=== PATIENT | male | born 1975 | race Caucasian/White ===

== ENCOUNTER 2020-01-28 20:19 | Emergency (ER) | payer OTHER, SELFPAY ==
[2020-01-28 20:34] VITALS: BP 160/86; PULSE 116; RESP 22; TEMP 38.8; O2SAT 97; BMI 44.3
[2020-01-28 20:37] VITALS: BMI 44.3
--- NOTE | 2020-01-28 20:39 | ED.GENADULT ---
HPI - General Adult General Chief complaint: Fever Stated complaint: Fever and body aches Time Seen by Provider: 01/28/20 20:22 Source: patient Mode of arrival: Ambulatory Limitations: no limitations History of Present Illness HPI narrative: 44-year-old male here for evaluation of approximately 24 hours of fevers, chills, body aches. Has taken Tylenol/ibuprofen for symptoms prior to arrival. No sick contacts. No sore throat. Does have a slight headache. No neck pain. No shortness breath. No cough. No abdominal pain. No change in bowel habits. No rashes. No recent travel. Came in for evaluation of potential COVID-19. Related Data Allergies Allergy/AdvReac Type Severity Reaction Status Date / Time naproxen Allergy Verified 01/28/20 20:34 Review of Systems Constitutional Constitutional: Reports body ache(s), Reports chills, Reports fatigue, Reports fever(s), Reports headache(s) and Reports lethargy Eyes Eyes: Denies change in vision ENT Ears, Nose, Mouth, and Throat: Reports headache(s), Denies sinus pain and Denies sore throat Cardiovascular Cardiovascular: Denies chest pain and Denies dyspnea Respiratory Respiratory: Denies dyspnea Gastrointestinal Gastrointestinal: Denies abdominal pain and Denies change in bowel habits Genitourinary Genitourinary: Denies dysuria Genitourinary: Denies dysuria Musculoskeletal Musculoskeletal: Denies arthralgias, Denies back pain, Reports myalgias and Reports myalgias Integumentary/Breasts Skin/Breast: Denies rash Neurologic Neurologic: Denies behavioral changes and Reports headache(s) Psychiatric Psychiatric: Denies behavioral changes Endocrine Endocrine: Reports fatigue Hematologic/Lymphatic Hematologic/Lymphatic: Denies easy bleeding and Denies easy bruising Allergic/Immunologic Allergic/Immunologic: Denies urticaria Patient History Medical History Healthy adult (Acute) Social History Smoking Status: Unknown if ever smoked Smoking Status: Unknown if ever smoked tobacco type: smokeless tobacco alcohol intake frequency: holidays/special occasions only Substance Use Type: marijuana Exam Initial Vital Signs Initial Vital Signs: Vital Signs Temperature 101.9 F H 01/28/20 20:34 Pulse Rate 116 H 01/28/20 20:34 Respiratory Rate 22 07/10/20 20:34 Blood Pressure 160/86 H 01/28/20 20:34 Pulse Oximetry 97 01/28/20 20:34 Const General: cooperative and comfortable Limitations: mental status not altered HENMT Head: normal to inspection and normocephalic Ears: TM's normal bilaterally Mouth: oral mucosae normal Teeth and gingiva: dentition normal Throat: posterior oropharynx normal Resp Effort & Inspection: normal respiratory effort Auscultation: clear to auscultation bilaterally Cardio Rate: regular rate Rhythm: regular rhythm GI Inspection: non-distended Palpation: soft Back/Spine/Pelvis Back: No CVA tenderness Skin Lesions: no lesions Rashes: no rashes Neuro General: patient alert, patient awake and patient oriented x3 Cognition: normal cognition Speech: speech normal Extrem General: normal to inspection and capillary refill normal Psych Appearance: grossly normal and well kempt Course Orders Ordered: ED Orders 01/28/20 20:50 XR chest 1V Stat 01/28/20 21:30 Lactate (Lactic Acid) Stat 01/28/20 21:50 Basic Metabolic Panel Stat Complete Blood Count AUTO DIFF Stat Procalcitonin Stat Discontinued Medications Acetaminophen (Tylenol) 975 mg PO NOW ONE Stop: 01/28/20 20:50 Last Admin: 01/28/20 21:02 Dose: 975 mg Documented by: ALESSIO Vital Signs Vital signs: Vital Signs - 8 hr 01/28/20 20:34 01/28/20 21:02 01/28/20 22:39 Temperature 101.9 F H 101.9 F H Pulse Rate 116 H 89 Respiratory Rate 22 Blood Pressure 160/86 H 151/65 H Pulse Oximetry 97 96 01/28/20 22:57 Temperature 100.2 F H Pulse Rate 89 Respiratory Rate 24 Blood Pressure 151/65 H Pulse Oximetry 96 Medical Decision Making Lab Data Lab results reviewed: Yes I reviewed the patient's lab results. Result diagrams: 01/28/20 21:50 01/28/20 21:50 Labs: Lab Results 01/28/20 01/28/20 01/28/20 Range/Units 21:30 21:50 21:50 WBC 4.3 L (4.5-11.0) X10^3/uL RBC 4.97 (4.5-5.9) X10^6/uL Hgb 15.0 (13.5-17.5) g/dL Hct 43.9 (41-53) % MCV 88.4 (80-100) fL MCH 30.1 (26-34) PG MCHC 34.1 (30-36) % RDW 12.8 (11.6-14.8) % Plt Count 184 (150-400) X10^3/uL Neut % (Auto) 80.2 H (50-75) % Lymph % (Auto) 9.6 L (25-40) % [place] % (Auto) 8.3 (3-14) % Eos % (Auto) 0.1 L (2-4) % Baso % (Auto) 1.8 (0-2) % Neut # (Auto) 3500 (1530-6999) /uL Lymph # (Auto) 400 L (4015-6896) /uL [place] # (Auto) 400 (0-900) /uL Eos # (Auto) 0 (0-450) /uL Baso # (Auto) 100 (0-100) /uL Sodium (137-145) mmol/L Potassium (3.4-5.1) mmol/L Chloride (98-107) mmol/L Carbon Dioxide (22-32) mmol/L BUN (9-20) mg/dL Creatinine (0.66-1.25) mg/dL Estimated GFR (>60) mL/min BUN/Creatinine Ratio (6-22) Glucose (70-100) mg/dL Lactate 2.0 (0.7-2.1) mmol/L Calcium (8.4-10.2) mg/dL Procalcitonin 0.40 (<0.5) ng/mL 01/28/20 Range/Units 21:50 WBC (4.5-11.0) X10^3/uL RBC (4.5-5.9) X10^6/uL Hgb (13.5-17.5) g/dL Hct (41-53) % MCV (80-100) fL MCH (26-34) PG MCHC (30-36) % RDW (11.6-14.8) % Plt Count (150-400) X10^3/uL Neut % (Auto) (50-75) % Lymph % (Auto) (25-40) % [place] % (Auto) (3-14) % Eos % (Auto) (2-4) % Baso % (Auto) (0-2) % Neut # (Auto) (6814-5083) /uL Lymph # (Auto) (4393-7712) /uL [place] # (Auto) (0-900) /uL Eos # (Auto) (0-450) /uL Baso # (Auto) (0-100) /uL Sodium 135 L (137-145) mmol/L Potassium 3.6 (3.4-5.1) mmol/L Chloride 101 (98-107) mmol/L Carbon Dioxide 25 (22-32) mmol/L BUN 15 (9-20) mg/dL Creatinine 0.81 (0.66-1.25) mg/dL Estimated GFR > 60.0 (>60) mL/min BUN/Creatinine Ratio 18.5 (6-22) Glucose 217 H (70-100) mg/dL Lactate (0.7-2.1) mmol/L Calcium 8.8 (8.4-10.2) mg/dL Procalcitonin (<0.5) ng/mL Imaging Data Chest x-ray: Radiologist's Impression: [place] [address] XRay Report Signed Patient: Jame Sykes WMR#: [id number] : 1975Acct:[id number] Age/Sex: 44 / MDate of Service: 01/28/20 Loc: ED Accession Number: [id number] Procedure: XR chest 1V Ordering Provider: Solo Perkins D.O. PROCEDURE: XR CHEST 1V INDICATIONS: eval for PNA TECHNIQUE: One view of the chest was acquired. COMPARISON: None. FINDINGS: Surgical changes and devices: None. Lungs and pleura: Lungs are clear. No pleural effusions or pneumothorax. Mediastinum: Mediastinal contours appear normal. Heart size is normal. Bones and chest wall: No suspicious bony lesions. Overlying soft tissues appear unremarkable. IMPRESSION: No acute cardiopulmonary findings. Dictated by: Leticia Vásquez M.D. on 01/28/2020 at 21:23 Approved by: Leticia Vásquez M.D. on 01/28/2020 at 21:23 [facility] Narrative Medical decision making narrative: Chest x-ray is unremarkable. Abdomen is soft and nondistended. Low suspicion for intra-abdominal source of his infection. Has no skin changes concerning for cellulitis. No cough. No sore throat. Exam is not consistent with meningitis. Have no direct source of his fever however COVID-19 is a concern. He was tested for this. We will contact him for any positive or negative results. Patient is not describing any urinary symptoms. We did discuss the use of Tylenol and/or ibuprofen for his symptoms. He was given return precautions and follow-up instructions. He expressed understanding and agreement. Discharge Plan Departure Patient Disposition: Home Clinical Impression: Fever Qualifiers: Fever type: unspecified Qualified Code(s): R50.9 - Fever, unspecified Discharge Date/Time: 01/28/20 22:58 Instructions: DI for Fever (Symptom) -- Adult Activity Restrictions/Additional Instructions: You can do Tylenol and/or ibuprofen like we discussed. You were tested for COVID-19. This test takes anywhere from 2-5 days to result. We will contact you for positive or negative results. Until then recommend that you self isolate. Be sure your covering your cough. Washing her hands frequently. Contact your primary provider for follow-up. Return to the emergency department for any new or worsening symptoms Stand Alone Forms: Work Release Note
--- NOTE | 2020-01-28 20:50 | DI.RAD.S_ITS ---
PROCEDURE: XR CHEST 1V INDICATIONS: eval for PNA TECHNIQUE: One view of the chest was acquired. COMPARISON: None. FINDINGS: Surgical changes and devices: None. Lungs and pleura: Lungs are clear. No pleural effusions or pneumothorax. Mediastinum: Mediastinal contours appear normal. Heart size is normal. Bones and chest wall: No suspicious bony lesions. Overlying soft tissues appear unremarkable. IMPRESSION: No acute cardiopulmonary findings. Dictated by: Leticia Vásquez M.D. on 01/28/2020 at 21:23 Approved by: Leticia Vásquez M.D. on 01/28/2020 at 21:23
[2020-01-28 21:02] VITALS: TEMP 38.8
[2020-01-28] MEDS: ACETAMINOPHEN 325 MG TABLET 975 MG PO (21:02)
--- NOTE | 2020-01-28 21:39 | PC.NURSE ---
Unsuccessful IV attempts. Lab to come draw for blood.
[2020-01-28 22:00] LABS: Add Manual Diff / Slide Review NO; Basophils Absolute Auto 100 /uL (0-100); Basophils Percent Auto 1.8 % (0-2); Eosinophils Absolute Auto 0 /uL (0-450); Eosinophils Percent Auto 0.1 % (2-4); Hematocrit 43.9 % (41-53); Lymphocytes Absolute Auto 400 /uL (1100-4500); Lymphocytes Percent Auto 9.6 % (25-40); Mean Corpuscular HGB Conc 34.1 % (30-36); Mean Corpuscular Hemoglobin 30.1 PG (26-34); Mean Corpuscular Volume 88.4 fL (80-100); Monocytes Absolute Auto 400 /uL (0-900); Monocytes Percent Auto 8.3 % (3-14); Neutrophils Absolute Auto 3500 /uL (1500-7000); Neutrophils Percent Auto 80.2 % (50-75); Platelet Count 184 X10^3/uL (150-400); Red Blood Cell Count 4.97 X10^6/uL (4.5-5.9); Red Cell Distribution Width 12.8 % (11.6-14.8); White Blood Cell Count 4.3 X10^3/uL (4.5-11.0)
[2020-01-28 22:14] LABS: BUN Creatinine Ratio 18.5 (6-22); Blood Urea Nitrogen 15 mg/dL (9-20); Calcium 8.8 mg/dL (8.4-10.2); Carbon Dioxide 25 mmol/L (22-32); Chloride 101 mmol/L (98-107); Estimated Glomerular Filt Rate > 60.0 mL/min (>60); Glucose 217 mg/dL (70-100); HEMOLYSIS < 15 (0-50); Potassium 3.6 mmol/L (3.4-5.1); Sodium 135 mmol/L (137-145)
[2020-01-28 22:39] VITALS: BP 151/65; PULSE 89; O2SAT 96
[2020-01-28 22:57] VITALS: BP 151/65; PULSE 89; RESP 24; TEMP 37.9; O2SAT 96
[2020-02-01 03:29] LABS: COVID19 Sendout Not Detected (Not Detected)
== END 2020-01-28 22:58 | disposition home or self-care (01) ==
PROVIDERS: Emergency Provider Emergency Medicine
DX: R50.9 Fever, unspecified (principal); Z03.818 Encounter for observation for suspected exposure to other biological agents ruled out; R51 Headache
CPT/HCPCS: 36415; 71045; 80048; 83605; 84145; 85025; 87635; 99283; 99284

== ENCOUNTER → 2020-11-10 12:20 | Outpatient (CLI) | payer OTHER, SELFPAY ==
[2020-11-10] MEDS: COVID-19 VACC #1, MRNA(MOD) 100 MCG/0.5 ML VIAL IM (12:29)
--- NOTE | 2020-11-10 14:35 | PC.NURSE ---
patient received 1st dose of covid vaccine (Moderna Lot#[id number] Exp 04/25/21) at 12:29 pm without incident. Patient walked to observation chair. approximately 14 minute michael, patient stated to Observation nurse (Jeri Mcpherson RN) that he didn't feel well. Patient then pitched forward out of the chair and landed on his face and was unresponsive, possible seizure-like activity. Multiple abrasions and lacerations on face (wearing glasses when he fell). Immediate care given, neck supported. Patient regained responsiveness, alert and oriented after possible brief post-ictal period. girlfriend at side. Rapid response called overhead by registration. Janis called ED to request they bring down backboard and c-collar. Rapid response team arrived. At 12:54- BP 160/[address] Matias with patient. C-collar placed. Patient responsive. Upon MD direction attempted to sit patient up with cervical precautions to get him in a wheelchair to take him to ED. When patient sat up became pale, diaphoretic, and nauseous and laid back down. Patient then again developed seizure like activity with rigidness in extremities, diaphoresis. Patient rolled to side. C-collar removed and head supported. 12:58 - BP 141/61, HR 99. Decision made by response team to call 911 for lift assistance due the the patient's size. 13:07 - BP140/65 HR 98. EMS on scene and evaluated patient. Patient responsive and asked to get up himself. pt up to waiting WC. Patient taken to ED at 13:15.
== END ==
PROVIDERS: Visit Provider Internal Medicine
DX: Z23 Encounter for immunization (principal)
CPT/HCPCS: 0011A; 91301

== ENCOUNTER 2020-11-10 13:15 | Emergency (ER) | payer OTHER, SELFPAY ==
[2020-11-10] VITALS (17 sets, daily range): BP systolic 108–130; BP diastolic 56–75; PULSE 73–87; RESP 18–24; TEMP 36.8; O2SAT 92–99
--- NOTE | 2020-11-10 13:24 | DI.CT.S_ITS ---
PROCEDURE: CT HEAD/BRAIN WO CON INDICATIONS: syncope, s/p vaccine, facial laceration TECHNIQUE: Noncontrast 4.5 mm thick angled axial sections acquired from the foramen magnum to the vertex, with coronal and sagittal reformats. For radiation dose reduction, the following was used: automated exposure control, adjustment of mA and/or kV according to patient size. COMPARISON: [facility], CT, CT CERVICAL SPINE WO CON, 11/10/2020, 13:40. [facility], CT, CT FACIAL BONES WO CON, 11/10/2020, 13:40. [facility], CR, XR CHEST 1V, 11/10/2020, 13:28. FINDINGS: Image quality: Excellent. CSF spaces: Basal cisterns are patent. No extra-axial fluid collections. Ventricles are normal in size and shape. Brain: No midline shift. No intracranial masses or hemorrhage. Moran-white matter interface is normal. Skull and face: Calvarium and visualized facial bones are intact, without suspicious lesions. Sinuses: Visualized sinuses and mastoids are clear. IMPRESSION: No acute intracranial process is seen. No acute intracranial hemorrhage is seen. No displaced facial bone fracture can be seen. Dictated by: Maurice Valentin M.D. on 11/10/2020 at 13:04 Approved by: Maurice Valentin M.D. on 11/10/2020 at 13:04
--- NOTE | 2020-11-10 13:24 | DI.RAD.S_ITS ---
PROCEDURE: XR CHEST 1V INDICATIONS: syncope, s/p vaccine, facial laceration TECHNIQUE: One view of the chest was acquired. COMPARISON: [facility], CR, XR CHEST 1V, 01/28/2020, 20:52. FINDINGS: Surgical changes and devices: None. Lungs and pleura: Lungs are clear. No pleural effusions or pneumothorax. Mediastinum: Mediastinal contours appear normal. Heart size is normal. Bones and chest wall: No suspicious bony lesions. Overlying soft tissues appear unremarkable. IMPRESSION: No acute cardiopulmonary disease process. Dictated by: Bijal Lara MD, PhD on 11/10/2020 at 13:42 Approved by: Bijal Lara MD, PhD on 11/10/2020 at 13:43
--- NOTE | 2020-11-10 13:24 | DI.CT.S_ITS ---
PROCEDURE: CT FACIAL BONES WO CON INDICATIONS: syncope, s/p vaccine, facial laceration TECHNIQUE: Noncontrast 2.5 mm thick axial images acquired from the mandible through the frontal sinuses, with coronal and sagittal reformatting. For radiation dose reduction, the following was used: automated exposure control, adjustment of mA and/or kV according to patient size. COMPARISON: [facility], CR, XR CHEST 1V, 11/10/2020, 13:28. [facility], CT, CT HEAD/BRAIN WO CON, 11/10/2020, 13:40. [facility], CT, CT CERVICAL SPINE WO CON, 11/10/2020, 13:40. FINDINGS: Image quality: Excellent. Bones and teeth: Orbital ramon are intact. Sinus ramon show no fracture or deformity. Nasal bones and septum are intact. Visualized portions of the mandible demonstrate no fractures or subluxation. Zygomatic arches are intact. Pterygoid plates are intact. Visualized portions of the skull base and auditory canals are intact. Sinuses: Moderate mucosal thickening is seen within the ethmoid air cells. Mild mucosal thickening is seen within the right sphenoid sinus. There is a mucous retention cyst within the left sphenoid sinus. Mastoid air cells are aerated. Soft tissues: Left-sided facial laceration is partially seen. Borderline prominent lymph nodes are seen involving both sides of the neck. No radiopaque foreign bodies are seen. Vascular: Visualized vascular structures appear normal in the absence of contrast. Bony vascular foramina and canals are intact. IMPRESSION: Left-sided facial laceration partially seen, without an underlying displaced fracture identified. Paranasal sinus disease is incidentally noted, which is worst within the ethmoid air cells. Dictated by: Maurice Valentin M.D. on 11/10/2020 at 13:01 Approved by: Maurice Valentin M.D. on 11/10/2020 at 13:03
--- NOTE | 2020-11-10 13:24 | DI.CT.S_ITS ---
PROCEDURE: CT CERVICAL SPINE WO CON INDICATIONS: syncope, s/p vaccine, facial laceration TECHNIQUE: Noncontrast 3 mm thick sections acquired from the skull base to the T4 level. Sagittal and coronal reformats were then constructed. For radiation dose reduction, the following was used: automated exposure control, adjustment of mA and/or kV according to patient size. COMPARISON: [facility], CT, CT HEAD/BRAIN WO CON, 11/10/2020, 13:40. [facility], CT, CT FACIAL BONES WO CON, 11/10/2020, 13:40. [facility], CR, XR CHEST 1V, 11/10/2020, 13:28. FINDINGS: Image quality: This examination is somewhat limited by quantum mottle artifact. Bones: No fractures or dislocations. Visualized superior ribs are intact. Soft tissues: Prevertebral soft tissues are normal in thickness. No paravertebral hematomas. No apical pneumothoraces. IMPRESSION: Negative for acute fracture. Dictated by: Maurice Valentin M.D. on 11/10/2020 at 13:05 Approved by: Maurice Valentin M.D. on 11/10/2020 at 13:08
[2020-11-10 13:31] LABS: Add Manual Diff / Slide Review NO; Basophils Absolute Auto 100 /uL (0-100); Basophils Percent Auto 1.4 % (0-2); Eosinophils Absolute Auto 300 /uL (0-450); Eosinophils Percent Auto 3.4 % (2-4); Hematocrit 43.7 % (41-53); Hemoglobin 14.9 g/dL (13.5-17.5); Lymphocytes Absolute Auto 2600 /uL (1100-4500); Lymphocytes Percent Auto 29.4 % (25-40); Mean Corpuscular HGB Conc 34.2 % (30-36); Mean Corpuscular Hemoglobin 30.5 PG (26-34); Mean Corpuscular Volume 89.2 fL (80-100); Monocytes Absolute Auto 800 /uL (0-900); Monocytes Percent Auto 8.7 % (3-14); Neutrophils Absolute Auto 5100 /uL (1500-7000); Neutrophils Percent Auto 57.1 % (50-75); Platelet Count 268 X10^3/uL (150-400); Red Blood Cell Count 4.89 X10^6/uL (4.5-5.9); Red Cell Distribution Width 12.5 % (11.6-14.8)
[2020-11-10 13:32] LABS: INR 1.1 (0.9-1.3); Prothrombin Time 12.1 SECONDS (10.1-12.7)
[2020-11-10 13:38] LABS: Alanine Aminotransferase 28 IU/L (<50); Albumin 4.4 g/dL (3.5-5.0); Albumin Globulin Ratio 1.2 (1.0-2.8); Alkaline Phosphatase 91 U/L (38-126); Aspartate Aminotransferase 25 IU/L (17-59); BUN Creatinine Ratio 23.1 (6-22); Blood Urea Nitrogen 18 mg/dL (9-20); Calcium 9.7 mg/dL (8.4-10.2); Carbon Dioxide 25 mmol/L (22-32); Chloride 103 mmol/L (98-107); Creatine Kinase 82 U/L (55-170); Estimated Glomerular Filt Rate > 60.0 mL/min (>60); Globulin 3.8 g/dL (1.7-4.1); Glucose 160 mg/dL (70-100); HEMOLYSIS < 15 (0-50); Potassium 3.7 mmol/L (3.4-5.1); Sodium 139 mmol/L (137-145); Total Protein 8.2 g/dL (6.3-8.2)
[2020-11-10] MEDS: SODIUM CHLORIDE 0.9% 1,000 ML 1000 ML IV (13:38)
[2020-11-10 13:39] LABS: Lactate (Lactic Acid) 2.8 mmol/L (0.7-2.1)
[2020-11-10] MEDS: ONDANSETRON 4 MG/2 ML INJ IV (13:49)
[2020-11-10 13:50] LABS: NT-proBNP (BNP-Adult 18+) 37 pg/mL (<125); Troponin I < 0.012 ng/mL (0.01-0.034)
--- NOTE | 2020-11-10 14:08 | RT ---
Called to [facility], pt on floor awake with no distress noted and airway patient. Md at pts side and . Pt transported by [facility] to ER.
--- NOTE | 2020-11-10 14:22 | ED.SYNCOPE ---
HPI - Syncope General Chief Complaint: Syncope Stated Complaint: syncope Time Seen by Provider: 11/10/20 13:24 Source: patient and EMS Mode of arrival: EMS Limitations: no limitations History of Present Illness HPI narrative: Patient is a 45-year-old male who presents after syncope episode after his 1st med during a COVID vaccine. He states he was sitting in the chair when he felt dizzy lightheaded like he was nauseous and going to throw up and then passed out on to the floor on his face. It was a brief loss of consciousness they set him up again and he passed out again. In the ED he has some facial abrasions his but no numbness tingling or weakness. He has no tongue swelling lip swelling or difficulty breathing. He says that this has happened to him in the past when he is at blood draw. MD complaint: collapsed Witnessed: yes - by bystander Related Data Allergies Allergy/AdvReac Type Severity Reaction Status Date / Time naproxen Allergy Verified 11/10/20 13:25 Review of Systems Review of Systems ROS Unobtainable: All systems reviewed & are unremarkable except as noted in HPI and below Constitutional Constitutional: Denies chills, Denies fever(s), Denies lethargy and Denies weakness ENT Ears, Nose, Mouth, and Throat: Denies vertigo and Denies dizziness Cardiovascular Cardiovascular: Denies chest pain, Reports syncope, Denies irregular heart rhythm, Reports lightheadedness, Denies palpitations, Denies dyspnea and Denies dyspnea on exertion Respiratory Respiratory: Denies cough, Denies dyspnea, Denies dyspnea on exertion and Denies wheezing Gastrointestinal Gastrointestinal: Denies abdominal pain, Denies change in bowel habits, Denies diarrhea, Denies nausea and Denies vomiting Musculoskeletal Musculoskeletal: Denies back pain and Denies joint swelling Integumentary/Breasts Skin/Breast: Denies pruritus, Denies erythema, Denies rash and Reports wounds Neurologic Neurologic: Denies vertigo, Denies dizziness, Reports syncope and Denies weakness Endocrine Endocrine: Denies palpitations Allergic/Immunologic Allergic/Immunologic: Denies wheezing Patient History Medical History (Updated 11/10/20 @ 16:20 by Kathia Mcadams DO) Healthy adult Hypertension Social History Smoking Status: Current every day smoker Smoking Status: Current every day smoker tobacco type: smokeless tobacco alcohol intake frequency: holidays/special occasions only Substance Use Type: marijuana Exam Initial Vital Signs Initial Vital Signs: Vital Signs Temperature 98.2 F 11/10/20 13:20 Pulse Rate 73 11/10/20 13:20 Respiratory Rate 18 11/10/20 13:20 Blood Pressure 125/75 11/10/20 13:20 Pulse Oximetry 99 11/10/20 13:20 GENERAL: Alert weak appearing male and in no acute distress. HEENT: Head atraumatic,EOMI, pupils reactive, face symmetric, moist mucous membranes CARDIOVASCULAR: Regular rate and rhythm without murmurs, rubs or gallops. RESPIRATORY: Breath sounds equal bilaterally, no wheezes rales or rhonchi. ABDOMEN: Soft, nontender. Normoactive bowel sounds all 4 quadrants. No guarding or rebound. EXTREMITIES: Normal range of motion, no clubbing or edema. Neurovascularly intact NEUROLOGICAL: Alert and oriented x4.Normal gait and speech. Cranial nerves II through XII grossly intact. Brand Executive strength equal bilaterally able to move lower extremities SKIN: Facial abrasions superficial lacerations. He does have a left upper lip flap like laceration between the upper lip and the nose of 1.5 x 1 cm Procedures Laceration Repair Laceration 1: Site: face Side (If applicable): left Size (cm): 2.5 (1.5x1cm) Description: flap Depth: simple, single layer Local Anesthetic: lidocaine 1% and with bicarb Amount of anesthesia used (mL): 3 Pre-repair: wound explored, irrigated extensively and deep structures intact Skin layer closed with: vicryl Size (cm): 5-0 Number of sutures: 3 Technique: simple, interrupted Course Orders Ordered: ED Orders 11/10/20 13:18 Complete Blood Count AUTO DIFF Stat Comprehensive Metabolic Panel Stat Lactate (Lactic Acid) Stat NT-proBNP (BNP-Adult 18+) Stat Prothrombin Time INR Stat Troponin & CK Cardiac Panel Stat 11/10/20 13:24 CT cervical spine wo con Stat CT facial bones wo con Stat CT head/brain wo con Stat XR chest 1V Stat EKG-12 Lead Stat Discontinued Medications Bacitracin (Bacitracin Oint 0.9 Gm Pckt) 1 applic TOP NOW ONE Stop: 11/10/20 16:17 Last Admin: 11/10/20 16:23 Dose: 1 applic Documented by: KSCHERE Sodium Chloride (Normal Saline 0.9%) 1,000 mls @ 1,000 mls/hr IV BOLUS ONE Stop: 11/10/20 14:23 Last Infusion: 11/10/20 15:08 Dose: 0 mls/hr Documented by: Admin: 11/10/20 13:38 Dose: 1,000 mls/hr Documented by: DEEP Lidocaine/Sodium Bicarbonate (Lido 1%/Sod Bicarb 8.4% (10ml) 10 Ml Syringe) 10 ml INJ NOW ONE Stop: 11/10/20 15:23 Last Admin: 11/10/20 16:03 Dose: 10 ml Documented by: PEPE Ondansetron HCl (Ondansetron 4 Mg/2 Ml Inj) 4 mg IV NOW ONE Stop: 11/10/20 13:46 Last Admin: 11/10/20 13:49 Dose: 4 mg Documented by: DEEP Vital Signs Vital signs: Vital Signs - 8 hr 11/10/20 13:20 11/10/20 13:23 11/10/20 13:30 Temperature 98.2 F Pulse Rate 73 79 78 Respiratory Rate 18 22 24 Blood Pressure 125/75 Pulse Oximetry 99 94 95 11/10/20 13:53 11/10/20 13:54 11/10/20 14:00 Temperature Pulse Rate 78 79 78 Respiratory Rate 18 20 22 Blood Pressure 124/61 Pulse Oximetry 95 96 94 11/10/20 14:01 11/10/20 14:15 11/10/20 14:30 Temperature Pulse Rate 79 78 77 Respiratory Rate 24 18 23 Blood Pressure 128/64 Pulse Oximetry 93 92 96 11/10/20 14:31 11/10/20 14:45 11/10/20 15:00 Temperature Pulse Rate 78 75 81 Respiratory Rate 24 20 20 Blood Pressure 126/58 L 116/58 L Pulse Oximetry 97 98 97 11/10/20 15:15 11/10/20 15:30 11/10/20 15:45 Temperature Pulse Rate 81 83 80 Respiratory Rate 20 20 20 Blood Pressure 108/56 L Pulse Oximetry 97 95 97 11/10/20 16:00 11/10/20 16:01 Temperature Pulse Rate 87 77 Respiratory Rate Blood Pressure 130/60 Pulse Oximetry 96 95 MDM - Syncope Lab Data Attestation: I reviewed the patient's lab results. Result diagrams: 11/10/20 13:18 11/10/20 13:18 Labs: Lab Results 11/10/20 11/10/20 11/10/20 Range/Units 13:18 13:18 13:18 WBC 9.0 (4.5-11.0) X10^3/uL RBC 4.89 (4.5-5.9) X10^6/uL Hgb 14.9 (13.5-17.5) g/dL Hct 43.7 (41-53) % MCV 89.2 (80-100) fL MCH 30.5 (26-34) PG MCHC 34.2 (30-36) % RDW 12.5 (11.6-14.8) % Plt Count 268 (150-400) X10^3/uL Neut % (Auto) 57.1 (50-75) % Lymph % (Auto) 29.4 (25-40) % [place] % (Auto) 8.7 (3-14) % Eos % (Auto) 3.4 (2-4) % Baso % (Auto) 1.4 (0-2) % Neut # (Auto) 5100 (7760-9237) /uL Lymph # (Auto) 2600 (6533-1272) /uL [place] # (Auto) 800 (0-900) /uL Eos # (Auto) 300 (0-450) /uL Baso # (Auto) 100 (0-100) /uL PT 12.1 (10.1-12.7) SECONDS INR 1.1 (0.9-1.3) Sodium 139 (137-145) mmol/L Potassium 3.7 (3.4-5.1) mmol/L Chloride 103 (98-107) mmol/L Carbon Dioxide 25 (22-32) mmol/L BUN 18 (9-20) mg/dL Creatinine 0.78 (0.66-1.25) mg/dL Estimated GFR > 60.0 (>60) mL/min BUN/Creatinine Ratio 23.1 H (6-22) Glucose 160 H (70-100) mg/dL Lactate (0.7-2.1) mmol/L Calcium 9.7 (8.4-10.2) mg/dL Total Bilirubin 1.0 (0.2-1.3) mg/dL AST 25 (17-59) IU/L ALT 28 (<50) IU/L Alkaline Phosphatase 91 (38-126) U/L Total Creatine Kinase 82 (55-170) U/L CK-MB (CK-2) TNP CK-MB (CK-2) Rel Index TNP Troponin I < 0.012 (0.01-0.034) ng/mL NT-Pro-B Natriuret Pep 37 (<125) pg/mL Total Protein 8.2 (6.3-8.2) g/dL Albumin 4.4 (3.5-5.0) g/dL Globulin 3.8 (1.7-4.1) g/dL Albumin/Globulin Ratio 1.2 (1.0-2.8) 11/10/20 Range/Units 13:18 WBC (4.5-11.0) X10^3/uL RBC (4.5-5.9) X10^6/uL Hgb (13.5-17.5) g/dL Hct (41-53) % MCV (80-100) fL MCH (26-34) PG MCHC (30-36) % RDW (11.6-14.8) % Plt Count (150-400) X10^3/uL Neut % (Auto) (50-75) % Lymph % (Auto) (25-40) % [place] % (Auto) (3-14) % Eos % (Auto) (2-4) % Baso % (Auto) (0-2) % Neut # (Auto) (5729-6295) /uL Lymph # (Auto) (3087-7156) /uL [place] # (Auto) (0-900) /uL Eos # (Auto) (0-450) /uL Baso # (Auto) (0-100) /uL PT (10.1-12.7) SECONDS INR (0.9-1.3) Sodium (137-145) mmol/L Potassium (3.4-5.1) mmol/L Chloride (98-107) mmol/L Carbon Dioxide (22-32) mmol/L BUN (9-20) mg/dL Creatinine (0.66-1.25) mg/dL Estimated GFR (>60) mL/min BUN/Creatinine Ratio (6-22) Glucose (70-100) mg/dL Lactate 2.8 H (0.7-2.1) mmol/L Calcium (8.4-10.2) mg/dL Total Bilirubin (0.2-1.3) mg/dL AST (17-59) IU/L ALT (<50) IU/L Alkaline Phosphatase (38-126) U/L Total Creatine Kinase (55-170) U/L CK-MB (CK-2) CK-MB (CK-2) Rel Index Troponin I (0.01-0.034) ng/mL NT-Pro-B Natriuret Pep (<125) pg/mL Total Protein (6.3-8.2) g/dL Albumin (3.5-5.0) g/dL Globulin (1.7-4.1) g/dL Albumin/Globulin Ratio (1.0-2.8) Point of Care Testing Glucose POC [address] scan - head: Radiologist's Impression: PROCEDURE: CT HEAD/BRAIN WO CON INDICATIONS: syncope, s/p vaccine, facial laceration TECHNIQUE: Noncontrast 4.5 mm thick angled axial sections acquired from the foramen magnum to the vertex, with coronal and sagittal reformats. For radiation dose reduction, the following was used: automated exposure control, adjustment of mA and/or kV according to patient size. COMPARISON: [facility], CT, CT CERVICAL SPINE WO CON, 11/10/2020, 13:40. [facility], CT, CT FACIAL BONES WO CON, 11/10/2020, 13:40. [facility], CR, XR CHEST 1V, 11/10/2020, 13:28. FINDINGS: Image quality: Excellent. CSF spaces: Basal cisterns are patent. No extra-axial fluid collections. Ventricles are normal in size and shape. Brain: No midline shift. No intracranial masses or hemorrhage. Moran-white matter interface is normal. Skull and face: Calvarium and visualized facial bones are intact, without suspicious lesions. Sinuses: Visualized sinuses and mastoids are clear. IMPRESSION: No acute intracranial process is seen. No acute intracranial hemorrhage is seen. No displaced facial bone fracture can be seen. Dictated by: Maurice Valentin M.D. on 11/10/2020 at 13:04 CT - cervical spine: Radiologist's Impression: PROCEDURE: CT CERVICAL SPINE WO CON INDICATIONS: syncope, s/p vaccine, facial laceration TECHNIQUE: Noncontrast 3 mm thick sections acquired from the skull base to the T4 level. Sagittal and coronal reformats were then constructed. For radiation dose reduction, the following was used: automated exposure control, adjustment of mA and/or kV according to patient size. COMPARISON: [facility], CT, CT HEAD/BRAIN WO CON, 11/10/2020, 13:40. [facility], CT, CT FACIAL BONES WO CON, 11/10/2020, 13:40. [facility], CR, XR CHEST 1V, 11/10/2020, 13:28. FINDINGS: Image quality: This examination is somewhat limited by quantum mottle artifact. Bones: No fractures or dislocations. Visualized superior ribs are intact. Soft tissues: Prevertebral soft tissues are normal in thickness. No paravertebral hematomas. No apical pneumothoraces. IMPRESSION: Negative for acute fracture. Dictated by: Maurice Valentin M.D. on 11/10/2020 at 13:05 CT face: Radiologist's Impression: PROCEDURE: CT FACIAL BONES WO CON INDICATIONS: syncope, s/p vaccine, facial laceration TECHNIQUE: Noncontrast 2.5 mm thick axial images acquired from the mandible through the frontal sinuses, with coronal and sagittal reformatting. For radiation dose reduction, the following was used: automated exposure control, adjustment of mA and/or kV according to patient size. COMPARISON: [facility], CR, XR CHEST 1V, 11/10/2020, 13:28. [facility], CT, CT HEAD/BRAIN WO CON, 11/10/2020, 13:40. [facility], CT, CT CERVICAL SPINE WO CON, 11/10/2020, 13:40. FINDINGS: Image quality: Excellent. Bones and teeth: Orbital ramon are intact. Sinus ramon show no fracture or deformity. Nasal bones and septum are intact. Visualized portions of the mandible demonstrate no fractures or subluxation. Zygomatic arches are intact. Pterygoid plates are intact. Visualized portions of the skull base and auditory canals are intact. Sinuses: Moderate mucosal thickening is seen within the ethmoid air cells. Mild mucosal thickening is seen within the right sphenoid sinus. There is a mucous retention cyst within the left sphenoid sinus. Mastoid air cells are aerated. Soft tissues: Left-sided facial laceration is partially seen. Borderline prominent lymph nodes are seen involving both sides of the neck. No radiopaque foreign bodies are seen. Vascular: Visualized vascular structures appear normal in the absence of contrast. Bony vascular foramina and canals are intact. IMPRESSION: Left-sided facial laceration partially seen, without an underlying displaced fracture identified. Paranasal sinus disease is incidentally noted, which is worst within the ethmoid air cells. Dictated by: Maurice Valentin M.D. on 11/10/2020 at 13:01 Chest x-ray: Radiologist's Impression: PROCEDURE: XR CHEST 1V INDICATIONS: syncope, s/p vaccine, facial laceration TECHNIQUE: One view of the chest was acquired. COMPARISON: [facility], , XR CHEST 1V, 01/28/2020, 20:52. FINDINGS: Surgical changes and devices: None. Lungs and pleura: Lungs are clear. No pleural effusions or pneumothorax. Mediastinum: Mediastinal contours appear normal. Heart size is normal. Bones and chest wall: No suspicious bony lesions. Overlying soft tissues appear unremarkable. IMPRESSION: No acute cardiopulmonary disease process. Dictated by: Bijal Lara MD, PhD on 11/10/2020 at 13:42 ECG Data Attestation: I personally reviewed and interpreted this ECG as follows: Prior ECG tracings: not available for review Interpretation: Normal sinus rhythm rate 79 p.r. interval 212 acute S [address] changes or T-wave inversions MDM Narrative Medical decision making narrative: Patient had a vasovagal reaction to a COVID vaccination. He seems quite tired and cold, lactate mildly elevated 2.8 he received 1 L of IV fluids. Facial laceration is repaired easily. Recommend he increase his primary care provider in regards to his 2nd vaccination however his no sign of anaphylaxis at this time. Discharge Plan Departure Patient Disposition: Home Clinical Impression: Vasovagal syncope Face lacerations Qualifiers: Encounter type: initial encounter Qualified Code(s): S01.81XA - Laceration without foreign body of other part of head, initial encounter Instructions: DI for Syncope in Adults (Fainting), DI for Laceration Repair Activity Restrictions/Additional Instructions: *You have been diagnosed with facial laceration and syncopal episode *What to do: At this time you had a vasovagal reaction from your vaccination. At this time please speak with her doctor before getting your 2nd vaccination. No sign of anaphylaxis at this time. Your sutures should dissolve over about 2 weeks. Please apply Neosporin to your facial wounds 1 to 2 times a day to help prevent infection. *Continue to take medications as directed Tylenol 650 mg every 4-6 hours if needed for [id number] Ibuprofen 600 mg every 6 hours if needed for [id number] pain *Follow up with your primary care provider in 2-3 days *Return to ER if you should have increased confusion, redness, pus, swelling, recurrent syncopal episodes or any new, worsening or concerning symptoms
[2020-11-10 15:27] LABS: Reflexed Lactate in 2 Hours Y
[2020-11-10] MEDS: LIDO 1%/SOD BICARB 8.4% (10ML) 10 ML SYRINGE INJ (16:03)
[2020-11-10] MEDS: BACITRACIN OINT 0.9 GM PCKT 1 APPLIC TOP (16:23)
== END 2020-11-10 16:29 | disposition home or self-care (01) ==
PROVIDERS: Emergency Medicine; Emergency Provider Emergency Medicine
DX: R55 Syncope and collapse (principal); T50.B95A Adverse effect of other viral vaccines, initial encounter; S01.81XA Laceration without foreign body of other part of head, initial encounter
CPT/HCPCS: 12011; 36415; 70450; 70486; 71045; 72125; 80053; 82550; 82962; 83605; 83880; 84484; 85025; 85610; 93005; 93010; 96361; 96374; 99285; J2405

== ENCOUNTER 2024-06-11 17:42 | Emergency (ER) | payer OTHER, SELFPAY ==
[2024-06-11 17:48] VITALS: BP 156/77; PULSE 95; RESP 16; TEMP 36.3; O2SAT 98; BMI 47.0
--- NOTE | 2024-06-11 17:55 | ED_ITS ---
HPI - Extremity Injury (Upper) <Annelise De La Garza PA-C - Last Filed: 06/11/24 19:06> General Chief Complaint: Extremity Injury, Upper Stated Complaint: rt arm px Time Seen by Provider: 06/11/24 17:54 Source: patient Mode of arrival: Ambulatory History of Present Illness HPI narrative: Mr. Sykes is a pleasant 48-year-old male with a PMHx of HTN who presents to ER for right arm pain x 5 days. Patient presents with his who contributes to the history. On Friday the patient was working at [employer] lifting something up with his right arm with his right arm in the fully adducted position when he felt a pop in his right upper arm. States that he did not have pain right away. He rest of the next 2 days however when he went back to work and lifted heavy again he is now experiencing pain in the right upper arm and shoulder. He has been using a sling at home which is helping but he has not tried any medications. He denies any numbness, tingling, weakness, neck pain, back pain, deformities. Related Data Allergies Allergy/AdvReac Type Severity Reaction Status Date / Time cephalexin [From Keflex] Allergy Rash Verified 06/11/24 17:51 naproxen Allergy Rash Verified 06/11/24 17:51 Review of Systems <Annelise De La Garza PA-C - Last Filed: 06/11/24 19:06> Review of Systems ROS Unobtainable: All systems reviewed & are unremarkable except as noted in HPI and below Patient History <Annelise De La Garza PA-C - Last Filed: 06/11/24 19:06> Medical History Hypertension Healthy adult Social History Smoking Status: Current every day smoker Smoking Status: Current every day smoker tobacco type: smokeless tobacco alcohol intake frequency: holidays/special occasions only Substance Use Type: marijuana Exam <Annelise De La Garza PA-C - Last Filed: 06/11/24 19:06> Narrative Exam Narrative: GENERAL: 48 year old patient appears stated age. Well-developed patient, in no acute distress. HEAD: Atraumatic. Normocephalic. EYES: Extraocular motions intact. No scleral icterus. No injection or drainage. ENT: Nose without bleeding, purulent drainage. Throat without erythema, tonsillar hypertrophy or exudate. Airway patent. NECK: Trachea midline. Cervical ROM intact. No midline cervical pain. CARDIOVASCULAR: Regular rate and rhythm. RESPIRATORY: ?Nonlabored respirations. ?Speaking in clear, full sentences. ?Clear to auscultation. Breath sounds equal bilaterally. No wheezes, rales, or rhonchi. ? EXTREMITIES: Generalized tenderness to palpation of the right biceps and triceps muscles with no palpable defect in the biceps tendon. 5/5 bilateral biceps and triceps strength intact. Mild tenderness to palpation of anterior shoulder and pain with abduction of right shoulder greater than 90?. Patient does have significant pain in right shoulder with resistance of abduction. Remainder of appendicular and axial skeleton is without tenderness. Strong radial pulse and sensation and strength intact in the distribution of the median, radial, ulnar nerves bilaterally. BACK: Nontender without deformity or crepitance. NEURO: AOx3. ?Clear speech. ?Moves all 4 extremities appropriately. SKIN: No rash or erythema of visible areas Initial Vital Signs Initial Vital Signs: Vital Signs Temperature 97.4 F L 06/11/24 17:48 Pulse Rate 95 H 06/11/24 17:48 Respiratory Rate 16 06/11/24 17:48 Blood Pressure 156/77 H 06/11/24 17:48 Pulse Oximetry 98 06/11/24 17:48 Oxygen Delivery Method Room Air 06/11/24 17:48 <Damaris Bond MD - Last Filed: 06/11/24 23:09> Initial Vital Signs Initial Vital Signs: Vital Signs Temperature 97.4 F L 06/11/24 17:48 Pulse Rate 95 H 06/11/24 17:48 Respiratory Rate 16 06/11/24 17:48 Blood Pressure 156/77 H 06/11/24 17:48 Pulse Oximetry 98 06/11/24 17:48 Oxygen Delivery Method Room Air 06/11/24 17:48 Course <Annelise De La Garza PA-C - Last Filed: 06/11/24 19:06> Orders Ordered: ED Orders 06/11/24 18:03 XR shoulder RT min 2V Stat Discontinued Medications Acetaminophen (Acetaminophen 325 Mg Tablet) 975 mg PO NOW ONE Stop: 06/11/24 18:04 Last Admin: 06/11/24 18:09 Dose: 975 mg Documented By: ES Ibuprofen (Ibuprofen 400 Mg Tablet) 400 mg PO NOW ONE Stop: 06/11/24 18:04 Last Admin: 06/11/24 18:09 Dose: 400 mg Documented By: ES Vital Signs Vital signs: Vital Signs - 8 hr 06/11/24 17:48 Temperature 97.4 F L Pulse Rate 95 H Respiratory Rate 16 Blood Pressure 156/77 H Pulse Oximetry 98 Oxygen Delivery Method Room Air <Damaris Bond MD - Last Filed: 06/11/24 23:09> Orders Ordered: ED Orders 06/11/24 18:03 XR shoulder RT min 2V Stat Discontinued Medications Acetaminophen (Acetaminophen 325 Mg Tablet) 975 mg PO NOW ONE Stop: 06/11/24 18:04 Last Admin: 06/11/24 18:09 Dose: 975 mg Documented By: ES Ibuprofen (Ibuprofen 400 Mg Tablet) 400 mg PO NOW ONE Stop: 06/11/24 18:04 Last Admin: 06/11/24 18:09 Dose: 400 mg Documented By: TRACY Vital Signs Vital signs: Vital Signs - 8 hr 06/11/24 17:48 Temperature 97.4 F L Pulse Rate 95 H Respiratory Rate 16 Blood Pressure 156/77 H Pulse Oximetry 98 Oxygen Delivery Method Room Air MDM - Extremity Injury (Upper) <Annelise De La Garza PA-C - Last Filed: 06/11/24 19:06> [facility] Narrative Medical decision making narrative: 48-year-old male presents to the emergency room with right upper arm and shoulder pain after a lifting injury on Friday. Differential diagnosis includes but is not limited to biceps tendon rupture, biceps muscle strain, triceps muscle strain, rotator cuff injury, AC joint separation, fracture, etc. On exam the patient is in no acute distress, nontoxic appearing. He has mild generalized tenderness to palpation of the right upper extremity with no deformities and no palpable defects. He does have pain with abduction of the right shoulder. Plan to obtain baseline right shoulder x-ray to rule out acute bony abnormality. We will treat with ibuprofen and Tylenol. Suspect soft tissue injury. Right shoulder x-ray reviewed by attending physician, no acute bony abnormality identified. Suspect right upper extremity muscle strain. We discussed supportive care with rice therapy and ibuprofen/Tylenol. Paperwork filled out for patient's work to allow him to do light duty/no heavy lifting while he is still experiencing pain. Advised patient to follow up with PCP. Provided with [facility] information. All questions answered, patient stable for discharge. Discharge Plan Departure Patient Disposition: Home Clinical Impression: Muscle strain of right upper arm Qualifiers: Encounter type: initial encounter Qualified Code(s): S46.911A - Strain of unspecified muscle, fascia and tendon at shoulder and upper arm level, right arm, initial encounter Muscle strain of right shoulder Qualifiers: Encounter type: initial encounter Qualified Code(s): S46.911A - Strain of unspecified muscle, fascia and tendon at shoulder and upper arm level, right arm, initial encounter Instructions: DI for Shoulder Sprain Activity Restrictions/Additional Instructions: Please take Ibuprofen (Motrin/Advil) or Acetaminophen (Tylenol) for pain. These are available over the counter. You may take Ibuprofen 600 mg every 8 hours with food for pain. You may also take Acetaminophen 650 mg every 4-6 hours for pain. Do not exceed 3000 mg of Tylenol a day as this can cause liver damage. Do not drink alcohol with either of these medications. Please use RICE therapy for your pain in addition to ibuprofen/acetaminophen. Rest the painful area. Ice the area of pain/swelling for at least 15 minutes, 4x a day. Compress the area of swelling using a brace, wrap, or splint if applied. Elevate the painful or swollen extremity by supporting it above the level of the heart with pillows when sitting or laying. You may call to schedule an appointment with [facility] if you have persistent or worsening pain [phone] Please follow up with your primary care doctor within the next 2-3 days for ER follow-up. (If you do not have a PCP you can call [phone]. ?to schedule an appointment with an [facility] Primary Care Provider) IF YOU DEVELOP ANY NEW OR WORSENING SYMPTOMS, RETURN TO THE ER! Please read the attached instructions, they highlight more specific treatments and interventions for you at home. Thank you for letting me participate in your care, Annelise De La Garza PA-C Stand Alone Forms: Patient Portal/API/Survey, Work Release Note ED Sign-out <Damaris Bond MD - Last Filed: 06/11/24 23:09> Cosign ED Attending Cosignature Attestation: I did not see this patient. I was available all times for consultation.
--- NOTE | 2024-06-11 18:03 | DI.RAD.S_ITS ---
PROCEDURE: XR SHOULDER RT MIN 2V INDICATIONS: right shoulder / upper arm pain after lifting TECHNIQUE: 3 views of the shoulder were acquired. COMPARISON: None. FINDINGS: Bones: No fractures or dislocations. No suspicious bony lesions. Visualized ribs appear intact. Soft tissues: No suspicious soft tissue calcifications. IMPRESSION: No acute right shoulder fracture or dislocation. No gross soft tissue abnormalities. Dictated by: Marko Johnson M.D. on 06/11/2024 at 19:54 Approved by: Marko Johnson M.D. on 06/11/2024 at 19:54
[2024-06-11] MEDS: ACETAMINOPHEN 325 MG TABLET 975 MG PO (18:09)
[2024-06-11] MEDS: IBUPROFEN 400 MG TABLET PO (18:09)
== END 2024-06-11 19:08 | disposition home or self-care (01) ==
PROVIDERS: Emergency Provider Physician Assistant
DX: S46.911A Strain of unspecified muscle, fascia and tendon at shoulder and upper arm level, right arm, initial encounter (principal); X50.9XXA Other and unspecified overexertion or strenuous movements or postures, initial encounter
CPT/HCPCS: 73030; 99283